=== PATIENT | male | born 1985 | race Caucasian/White ===

== ENCOUNTER 2018-10-23 17:05 | Emergency (ER) | payer SELFPAY ==
[2018-10-23] MEDS ORDERED: ACETAMINOPHEN 500 MG TAB ONE (17:52)
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
== END 2018-10-23 18:35 | disposition home or self-care (01) ==
LOC: ER 17:05
DX: S00.80XA Unspecified superficial injury of other part of head, initial encounter (principal); Z04.71 Encounter for examination and observation following alleged adult physical abuse; W50.0XXA Accidental hit or strike by another person, initial encounter; Y93.9 Activity, unspecified; Y92.9 Unspecified place or not applicable; Z21 Asymptomatic human immunodeficiency virus [HIV] infection status; Z88.0 Allergy status to penicillin; F17.210 Nicotine dependence, cigarettes, uncomplicated
CPT/HCPCS: 70450; 72125; 99284

== ENCOUNTER 2018-10-24 08:41 | Emergency (ER) | payer SELFPAY ==
--- OUTSIDE RECORDS SUMMARY | 2018-10-24 08:44 | XMS REPORT ---
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, W/ USE DISORDER, MOD STIMULANT Active Jesus Manuel Pathological INTOXICATION 08/20 08/20 Fiona mckeon MD intoxication AMPHETAMINE/ OTHER, W/OUT PERCEPT DISTURBNCS, W/ USE DISORD, MILD Smoker 305.1 Active Johnny Tobacco use 06/22 06/22 Klarberg disorder SECURITY AGENT SUBSTANCE Active Josse USE 06/03 06/03 Abhay DISORDER, ACIDITY TESTER OTHER, MOD Back pain 724.5 Active Nicole Backache, 05/26 05/26 Rae DO unspecified Depression 311 Active Nicole Depressive with 05/26 05/26 Rae DO disorder, not psychosis elsewhere classified Hormone 259.9 Active Johnny 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 SECURITY AGENT disorder Substance 305.90 Active Nicole Other, mixed, or abuse 05/26 05/26 Rae DO unspecified drug abuse, unspecified use HIV 042 Active Saira Human infection 07/13 07/13 Robert-Pool immunodeficiency e MA virus [HIV] disease Screening V77.91 Active Saira Screening for for 07/13 07/13 Robert-Pool lipoid disorders hypercholest e MA erolemia DEPRESSIVE 2017/0 Inactive Jesus Manuel Atypical DISORDER, 06/03 01/07 Fiona depressive OTHER MD disorder SPECIFIED DEPRESSIVE DISORDER, Inactive Jesus Manuel Jaimes OTHER SPECIFIED MD Gender identity 302.6 Inactive Nicole Rae 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 Medication List Medication Instructions Start Stop Generic NDC Status Provider Patient Date Date Name Instruction SEROQUEL 200 1 By Mouth QUETIAPINE 66982854286 Active Zishan Active MG ORAL at bedtime FUMARATE Samiuddin TABLET ASPIRIN 81 1 by mouth ASPIRIN 30395730895 Active Johnny Active MG ORAL every day Klarberg TABLET SECURITY AGENT DELAYED RELEASE ESTRADIOL 1 two tabs By ESTRADIOL 38375427194 Active Johnny Active MG ORAL Mouth Twice Klarberg TABLET a Day SECURITY AGENT SPIRONOLACTO Two tabs By SPIRONOLACTON 15022318269 Active Johnny Active NE 50 MG Mouth Twice E Klarberg ORAL TABLET a Day SECURITY AGENT VITAMIN D One tablet ERGOCALCIFERO 13763625169 Active Nicole Active (ERGOCALCIFE by mouth L Rae DO ROL) 39928 once per UNIT ORAL week for 8 CAPSULE weeks ISENTRESS 1 By Mouth RALTEGRAVIR 61122099271 Active Silviano Active 400 MG ORAL Twice a Day POTASSIUM Bedoya MD TABLET NAPROXEN 500 1 by mouth NAPROXEN 87801225285 Active Nicole Active MG ORAL twice a day Rae DO TABLET as needed for pain and inflammatio n TRUVADA 1 by mouth EMTRICITABINE 40896402658 Active Silviano Active 200-300 MG daily -TENOFOVIR Bedoya MD ORAL TABLET Vital Signs Date Name Value Unit Range Description blood pressure, diastolic 79 mm[Hg] BP mac blood pressure, systolic 117 mm[Hg] BP sys height E&M 66 [in_us] Bdy height pulse rate E&M 97 /min Heart rate weight E&M 160.38 [lb_av] Weight Measured Diagnostic Results Date Name Value Unit Range Description Lab Report: CD4/CD8 Ratio Profile, Comp. Metabolic Panel (14), Lipid Chao ... - Serology hepatitis C antibody, serum <0.1 0.0-0.9 Lab Report: CD4/CD8 Ratio Profile, Comp. Metabolic Panel (14), Lipid Chao ... - Hematology lymphocyte count, blood, automated 1.2 X10E3/UL 10*3/mm3 0.7- 3.1 Lab Report: CD4/CD8 Ratio Profile, Comp. Metabolic Panel (14), Lipid Chao ... - Toxicology HIV-2 antibodies, western blot Negative Negative Lab Report: CD4/CD8 Ratio Profile, Comp. Metabolic Panel (14), Lipid Chao ... - Chemistry urea nitrogen, blood 13 mg/dL 6-20 Lab Report: CD4/CD8 Ratio Profile, Comp. Metabolic Panel (14), Lipid Chao ... - Serology HIV-1RNA, serum, by PCR, quantitative <20 copies/mL {Copies}/mL Lab Report: CD4/CD8 Ratio Profile, Comp. Metabolic Panel (14), Lipid Chao ... - Hematology T-helper cells (CD4) as percent of blood lymphocytes 36.6 % 30.8 -58.5 Lab Report: CD4/CD8 Ratio Profile, Comp. Metabolic Panel (14), Lipid Chao ... - Chemistry creatinine, serum 0.91 mg/dL 0.76-1.27 chloride, serum 99 mmol/L 96-106 Lab Report: CD4/CD8 Ratio Profile, Comp. Metabolic Panel (14), Lipid Chao ... - Hematology mean corpuscular volume, RBC 97 fL 79-97 Lab Report: CD4/CD8 Ratio Profile, Comp. Metabolic Panel (14), Lipid Chao ... - Chemistry triglyceride, serum, fasting 81 mg/dL 0-149 Lab Report: CD4/CD8 Ratio Profile, Comp. Metabolic Panel (14), Lipid Chao ... - Hematology erythrocyte (RBC) count 4.53 X10E6/UL 10*6/mm3 4.14-5.80 Lab Report: CD4/CD8 Ratio Profile, Comp. Metabolic Panel (14), Lipid Chao ... - Chemistry Estimated Glomerular Filtration Rate (calc) 112 mL/min/1.73m2 > 59 Lab Report: CD4/CD8 Ratio Profile, Comp. Metabolic Panel (14), Lipid Chao ... - Hematology platelet count 231 X10E3/UL 10*3/mm3 150-379 Lab Report: CD4/CD8 Ratio Profile, Comp. Metabolic Panel (14), Lipid Chao ... - Serology HIV-1/HIV-2 Ab, serum Positive Negative Lab Report: CD4/CD8 Ratio Profile, Comp. Metabolic Panel (14), Lipid Chao ... - Hematology red blood cell distribution width 13.7 % 12.3-15.4 Lab Report: CD4/CD8 Ratio Profile, Comp. Metabolic Panel (14), Lipid Chao ... - Chemistry protein, total, serum 7.1 g/dL 6.0-8.5 HDL cholesterol, serum 55 mg/dL >39 prolactin, serum 13.6 ng/mL 4.0-15.2 Lab Report: CD4/CD8 Ratio Profile, Comp. Metabolic Panel (14), Lipid Chao ... - Microbiology hepatitis A antibody, total Negative Negative Lab Report: CD4/CD8 Ratio Profile, Comp. Metabolic Panel (14), Lipid Chao ... - Hematology eosinophils as percent of blood leukocytes 3 % Lab Report: CD4/CD8 Ratio Profile, Comp. Metabolic Panel (14), Lipid Chao ... - Chemistry albumin/globulin ratio, serum 1.7 1.2-2.2 Absolute Neutrophils 3.0 X10E3/UL 10*3/uL 1.4-7.0 Lab Report: CD4/CD8 Ratio Profile, Comp. Metabolic Panel (14), Lipid Chao ... - Hematology basophil count, absolute 0.0 x10E3/uL 0.0-0.2 Lab Report: CD4/CD8 Ratio Profile, Comp. Metabolic Panel (14), Lipid Chao ... - Chemistry hepatitis B surface antigen Negative Negative alanine aminotransferase (SGPT), serum 11 U/L 0-44 LDL cholesterol, serum 139 mg/dL 0-99 Lab Report: CD4/CD8 Ratio Profile, Comp. Metabolic Panel (14), Lipid Chao ... - Hematology monocytes as percent of blood leukocytes 10 % Lab Report: CD4/CD8 Ratio Profile, Comp. Metabolic Panel (14), Lipid Chao ... - Chemistry CD4/CD8 ratio 0.80 0.92-3.72 cholesterol, serum 210 mg/dL 100-199 Lab Report: CD4/CD8 Ratio Profile, Comp. Metabolic Panel (14), Lipid Chao ... - Hematology mean corpuscular hemoglobin 34.9 G/DL % 31.5-35.7 concentration, RBC hemoglobin, blood 15.3 g/dL 12.6-17.7 leukocyte count, blood 4.9 X10E3/UL 10*3/mm3 3.4-10.8 hematocrit, blood 43.8 % 37.5-51.0 T-suppressor cells (CD8) as percent of 45.7 % 12.0-35.5 blood lymphocytes Lab Report: CD4/CD8 Ratio Profile, Comp. Metabolic Panel (14), Lipid Chao ... - Chemistry globulin, serum 2.6 1.5-4.5 Lab Report: Testosterone, Serum, Hemoglobin A1c, Prolactin, Vitamin D, 2 ... - Chemistry vitamin D 25-hydroxy, serum 26.2 ng/mL 30.0-100.0 Lab Report: CD4/CD8 Ratio Profile, Comp. Metabolic Panel (14), Lipid Chao ... - Chemistry testosterone, serum, free 10.5 pg/mL 8.7-25.1 thyroid stimulating hormone, serum 0.747 u[iU]/mL 0.450-4.500 albumin, serum 4.5 g/dL 3.5-5.5 very low density lipoproteins 16 mg/dL 5-40 Lab Report: CD4/CD8 Ratio Profile, Comp. Metabolic Panel (14), Lipid Chao ... - Hematology basophils as percent of blood leukocytes 1 % Lab Report: CD4/CD8 Ratio Profile, Comp. Metabolic Panel (14), Lipid Chao ... - Chemistry calcium, serum 9.6 mg/dL 8.7-10.2 Lab Report: CD4/CD8 Ratio Profile, Comp. Metabolic Panel (14), Lipid Chao ... - Hematology monocyte count, blood, automated 0.5 X10E3/UL 10*3/uL 0.1-0.9 Internal Correspondence: Pre-Visit Planning:[facility] 06/22/16@3:30PM-confirmed - CC care application development team lead #1, name [facility] AM-A Christianne Adkins MD / ANANYA Magaña FNP / Kelli Tavera MA D LAMIN Bynum / ANANYA Kendrick MD / Tiffany Martinez MA Lab Report: CD4/CD8 Ratio Profile, Comp. Metabolic Panel (14), Lipid Chao ... - Chemistry immature granulocytes, percentage of total cells, blood 0 % urea nitrogen/creatinine ratio, serum 14 9-20 Lab Report: CD4/CD8 Ratio Profile, Comp. Metabolic Panel (14), Lipid Chao ... - Genetics/fertility eGFR if 129 mL/min/1.73m2 >59 Lab Report: CD4/CD8 Ratio Profile, Comp. Metabolic Panel (14), Lipid Chao ... - Hematology lymphocytes as percent of blood leukocytes 25 % Lab Report: CD4/CD8 Ratio Profile, Comp. Metabolic Panel (14), Lipid Chao ... - Chemistry carbon dioxide, venous blood 26 mmol/L 18-29 estradiol, serum 103.0 pg/mL 7.6-42.6 Lab Report: CD4/CD8 Ratio Profile, Comp. Metabolic Panel (14), Lipid Chao ... - Serology rapid plasma reagin antibody, serum Non Reactive Non Reactive Lab Report: Chlamydia/GC Amplification - Lab chlamydia DNA probe Negative Negative Lab Report: Chlamydia/GC Amplification - Microbiology Neisseria gonorrhoeae DNA probe Negative Negative Lab Report: CD4/CD8 Ratio Profile, Comp. Metabolic Panel (14), Lipid Chao ... - Chemistry sodium, serum 140 mmol/L 134-144 Lab Report: CD4/CD8 Ratio Profile, Comp. Metabolic Panel (14), Lipid Chao ... - Serology hepatitis B core antibody, total Negative Negative Lab Report: Testosterone, Serum, Hemoglobin A1c, Prolactin, Vitamin D, 2 ... - Chemistry hemoglobin A1C, blood, as % of total hemoglobin 5.3 % 4.8-5.6 Lab Report: CD4/CD8 Ratio Profile, Comp. Metabolic Panel (14), Lipid Chao ... - Chemistry alkaline phosphatase, serum 62 U/L 39-117 testosterone, total 785 ng/dL [id number] Lab Report: CD4/CD8 Ratio Profile, Comp. Metabolic Panel (14), Lipid Chao ... - Hematology Eosinophil Absolute Count 0.1 X10E3/UL 10*3/uL 0.0-0.4 T-helper cells (CD4) count 439 /UL uL 359-1519 mean corpuscular hemoglobin, RBC 33.8 pg 26.6-33.0 Lab Report: CD4/CD8 Ratio Profile, Comp. Metabolic Panel (14), Lipid Chao ... - Chemistry bilirubin, serum, total 0.3 mg/dL 0.0-1.2 Lab Report: CD4/CD8 Ratio Profile, Comp. Metabolic Panel (14), Lipid Chao ... - Hematology neutrophils as percent of blood leukocytes 61 % Lab Report: CD4/CD8 Ratio Profile, Comp. Metabolic Panel (14), Lipid Chao ... - Chemistry blood glucose, random 61 mg/dL 65-99 potassium, serum 4.1 mmol/L 3.5-5.2 Lab Report: CD4/CD8 Ratio Profile, Comp. Metabolic Panel (14), Lipid Chao ... - Serology hepatitis B surface antibody Reactive toxoplasma gondii antibody, IgG <3.0 0.0-7.1 Lab Report: CD4/CD8 Ratio Profile, Comp. Metabolic Panel (14), Lipid Chao ... - Chemistry aspartate aminotransferase (SGOT), serum 13 U/L 0-40 absolute CD8 548 [id number] Encounters Date Encounter Provider Code Facility Est Patient Exp Jesus Manuel Jaimes MD CPT-[id number] [facility] 12:23:21 CDT Problem - 48042 [facility] Est Patient Exp Johnny YANGP CPT-55258 [facility] 11:10:37 CDT Problem - 75716 [facility] Est Patient Detailed Jesus Manuel Jaimes MD CPT-39086 [facility] 09:33:40 CDT - 38532 [facility] Est Patient Exp Johnny KIMBLE CPT-19024 [facility] 08:59:42 CDT Problem - 01814 Est Patient Exp Jesus Manuel Jaimes MD CPT-23589 [facility] 14:51:48 CDT Problem - 73519 [facility] Est Patient Exp Jesus Manuel Jaimes MD CPT-71667 [facility] 13:10:18 CDT Problem - 34787 [facility] Est Patient Exp Johnny YANGP CPT-83491 [facility] 09:43:07 CDT Problem - 93339 Est Patient Exp Jesus Manuel Jaimes MD CPT-03648 [facility] 12:44:51 CDT Problem - 61620 [facility] Est Patient Exp Jesus Manuel Jaimes MD [facility]-45450 [facility] 16:36:52 CDT Problem - 00413 [facility] Est Patient Detailed Johnny YANGP CPT-08598 [facility] 13:35:22 BEVEL GEAR GENERATOR OPERATOR - 15529 [facility], New Level Nicole Martinezan DO CPT-07333 [facility] 12:38:11 BEVEL GEAR GENERATOR OPERATOR II Procedures Code Procedure Name Date Entry Date Standard Description CPT-05087 Diagnostic evaluation with medical - 64970 12:07:42 BEVEL GEAR GENERATOR OPERATOR CPT-36104 Diagnostic evaluation (no medical) - 17707 11:26:21 BEVEL GEAR GENERATOR OPERATOR CPT-25142 Xray - Spine - Lumboacral - InHouse 15:37:18 BEVEL GEAR GENERATOR OPERATOR CPT-12283 Handling of specimen for transfer 12:53:20 BEVEL GEAR GENERATOR OPERATOR CPT-39588 Venipuncture 12:53:20 BEVEL GEAR GENERATOR OPERATOR
--- OUTSIDE RECORDS SUMMARY | 2018-10-24 08:44 | XMS REPORT ---
:1985 [facility] Address [address] [place] [address] [address] [place] [address] Care Team Providers Name Role Phone Unavailable Unavailable Unavailable Problems This patient has no known problems. Allergies, Adverse Reactions, Alerts This patient has no known allergies or adverse reactions. Medications This patient has no known medications.
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
[2018-10-24] MEDS ORDERED: TETANUS & DIPHTHERIA TOX,ADULT 0.5 ML VIAL ONE (10:10)
[2018-10-24] MEDS ORDERED: ACETAMINOPHEN 325 MG TABLET ONE (10:10)
[2018-10-24] MEDS ORDERED: CEPHALEXIN 250 MG CAP ONE (10:10)
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
== END 2018-10-24 11:21 | disposition home or self-care (01) ==
LOC: ER 08:41
DX: S02.2XXA Fracture of nasal bones, initial encounter for closed fracture (principal); S00.90XA Unspecified superficial injury of unspecified part of head, initial encounter; F17.210 Nicotine dependence, cigarettes, uncomplicated; F32.9 Major depressive disorder, single episode, unspecified; Y04.2XXA Assault by strike against or bumped into by another person, initial encounter; Y93.9 Activity, unspecified; Y92.9 Unspecified place or not applicable; Z88.0 Allergy status to penicillin; Z21 Asymptomatic human immunodeficiency virus [HIV] infection status
CPT/HCPCS: 70160; 70450; 72125; 90714; 99284